=== PATIENT | female | born 2000 | race Caucasian/White ===

== ENCOUNTER → 2020-08-28 10:43 | Outpatient (CLI) | payer BC, SELFPAY ==
--- NOTE | ~2020-08-28 | US_ITS ---
EXAMINATION: US pelvic complete EXAM DATE: 08/28/2020 10:59 INDICATION: Abnormal uterine bleeding. TECHNIQUE: Pelvic transabdominal sonogram was performed. There are multiple grayscale and Doppler im ages available for interpretation. There is no prior study for comparison. FINDINGS: Uterus measures 6.9 x 2.2 x 3.3 cm, and is morphologically normal. Endometrial stripe dong sures 3 mm, within normal limits. There is no free pelvic fluid. Right adnexa: The ovary measures 2.3 x 1.4 x 2.6 cm and is morphologically normal. Ovarian vascular f low confirmed. Left adnexa: The ovary measures 2.4 x 1.3 x 2.0 cm and is morphologically normal. Ovarian vascular fl ow confirmed. IMPRESSION: Unremarkable pelvic ultrasound exam. Reviewed, dictated and finalized at location A.
== END ==
PROVIDERS: Visit Provider Nurse Practitioner
DX: N93.9 Abnormal uterine and vaginal bleeding, unspecified (principal)
CPT/HCPCS: 76856

== ENCOUNTER → 2021-04-14 07:45 | Outpatient (CLI) | payer BC, SELFPAY ==
--- NOTE | ~2021-04-14 | US_ITS ---
EXAMINATION: US abdomen limited DATE: 04/14/2021 08:14 INDICATION: Right upper quadrant abdominal pain. TECHNIQUE: Multiple grayscale and Doppler ultrasound images of the abdomen were obtained. COMPARISON: None FINDINGS: The visualized portions of the head, body, and tail of the pancreas are normal. The liver i s normal without focal lesion. No liver surface nodularity. There is normal flow in main portal vein. The gallbladder is normal in size. No gallstones or gallbladder wall thickening. There was no sonogr aphic Rankin sign. The common duct is normal and measures 3 mm. IMPRESSION: 1. Normal right upper quadrant ultrasound. Reviewed, dictated and finalized at location A. TECHNICIAN
== END ==
PROVIDERS: Visit Provider Nurse Practitioner Adult Health
DX: R10.11 Right upper quadrant pain (principal)
CPT/HCPCS: 76705

== ENCOUNTER 2021-07-08 14:01 | Emergency (ER) | payer BC, SELFPAY ==
[2021-07-08 14:17] VITALS: BP 140/77; PULSE 90; RESP 18; TEMP 36.6; O2SAT 100
--- NOTE | 2021-07-08 14:48 | ED.ALLEREA ---
HPI - Allergic Reaction General Chief complaint: Allergic Reaction Stated complaint: allergic reaction Time Seen by Provider: 07/08/21 14:40 History of Present Illness HPI narrative: 20-year-old female presented the emergency room with acute onset of rash to her upper and lower extremities. Patient states 3 to 4 days ago she was putting on a new lotion. Patient states rash is pruritic, has taken 50 mg of Benadryl this morning with no resolution of symptoms. Denies shortness of breath or difficulty breathing. Related Data Home Medications Medication Instructions Recorded Confirmed fluoxetine mg 07/08/21 Allergies Allergy/AdvReac Type Severity Reaction Status Date / Time nickel Allergy Rash Verified 07/08/21 14:41 Review of Systems Review of Systems: CONSTITUTIONAL: Denies fever, chills, or sweats. EYES: Denies visual changes, redness, or discharge. ENT: Denies rhinorrhea, congestion, sore throat, or otalgia. CARDIOVASCULAR: Denies chest pain, palpitations, or edema. RESPIRATORY: Denies cough or dyspnea. GASTROINTESTINAL: Denies abdominal pain, nausea, vomiting, or diarrhea. GENITOURINARY: Denies dysuria or hematuria. SKIN: Reports pruritic rash to arms and legs MUSCULOSKELETAL: Denies back pain, joint pain, or myalgia. NEUROLOGIC: Denies headache, numbness, dizziness, or weakness. PSYCHIATRIC: Denies anxiety or depression. Exam Narrative: GENERAL: Well-appearing, well-nourished, and in no acute distress. HEAD: Normocephalic, atraumatic. EYES: PERRLA and EOMI. ENT: Nares clear, no rhinorrhea or epistaxis. Mucous membranes moist. NECK: Supple. No adenopathy or masses. No carotid bruits or JVD CHEST: Clear to auscultation. No respiratory distress. No wheezes rales or rhonchi HEART: Regular rate and rhythm. No murmur heard. Normal peripheral pulses. ABDOMEN: Soft, nontender, nondistended, normal active bowel sounds. EXTREMITIES: Normal range of motion. No edema. SKIN: Erythematous wheals to the anterior surfaces of the upper and lower extremities and interdigitally NEURO: No focal deficits. Alert and oriented x3. PSYCH: Normal mood and affect. Course Vital Signs Vital signs: Vital Signs Temperature 36.6 C 07/08/21 14:17 Pulse Rate 90 07/08/21 14:17 Respiratory Rate 18 07/08/21 14:17 Blood Pressure 140/77 07/08/21 14:17 Pulse Oximetry 100 07/08/21 14:17 Temperature 36.6 C 07/08/21 14:17 Pulse Rate 90 07/08/21 14:17 Respiratory Rate 18 07/08/21 14:17 Blood Pressure 140/77 07/08/21 14:17 Pulse Oximetry 100 07/08/21 14:17 Discharge Plan Discharge Clinical Impression: Urticaria Allergic reaction Qualifiers: Encounter type: initial encounter Qualified Code(s): T78.40XA - Allergy, unspecified, initial encounter Patient Disposition: Home, Self-Care Condition: Stable Instructions: Antibiotic Form Additional Instructions: May take Benadryl at night, and Yi or Zyrtec during the day for rash and itching. Recommend taking a daily Pepcid. Follow-up with PCP in the next 1 to 2 weeks. Prescriptions: New prednisone 20 mg tablet 40 mg PO DAILY Qty: 10 RF: 0 No Action fluoxetine 20 mg tablet RF: 0 Follow-up/Referrals: Luis Alberto,ADIN Cohen [Primary Care Provider] - Time of Disposition: 15:59
[2021-07-08] MEDS: SODIUM CHLORIDE 0.9% IV 1,000 ML 999 ML IV CONT (14:57)
[2021-07-08] MEDS: diphenhydrAMINE HCl INJ 50 MG/ML VIAL IV PUSH (14:57)
[2021-07-08] MEDS: methylPREDNISolone SOD SUCC 125 MG VIAL IV PUSH (14:58)
[2021-07-08] MEDS: FAMOTIDINE 20 MG/2 ML VIAL IV PUSH (15:01)
[2021-07-08 16:16] VITALS: BP 128/76; PULSE 85; RESP 17; O2SAT 99
== END 2021-07-08 16:18 | disposition home or self-care (01) ==
PROVIDERS: Emergency Provider Nurse Practitioner Family; PCP Nurse Practitioner Adult Health
DX: T78.40XA Allergy, unspecified, initial encounter (principal); L50.9 Urticaria, unspecified
CPT/HCPCS: 96361; 96374; 96375; 99284; J1200; J2930; J7030

== ENCOUNTER 2022-06-01 22:18 | Emergency (ER) | payer BC, SELFPAY ==
--- NOTE | ~2022-06-01 | CT_ITS ---
Noncontrast CT scan of the thoracolumbar spine CLINICAL HISTORY: Back pain, injury TECHNIQUE: Axial noncontrast imaging of the thoracic and lumbar spine was performed. Sagittal and cor onal reformatted images were constructed. Dose reduction technique was used on this scan by utilizing automated exposure control and iterative reconstruction technique. CT thoracic spine findings: No fracture or subluxation identified. Vertebral bodies maintain normal h eight. No significant osseous abnormality identified. No definite canal stenosis or cord compression identified. No definite disc bulge or herniation ident ified. Paravertebral soft tissues are unremarkable. CT lumbar spine findings: No fracture or subluxation identified. Vertebral bodies maintain normal hei ght and alignment. No significant osseous abnormality identified. No definite disc bulge or herniation identified. No definite spinal canal stenosis or neural foramina l narrowing identified. Paravertebral soft tissues are unremarkable. IMPRESSION: Unremarkable thoracic spine. Unremarkable lumbar spine. Reviewed, dictated and finalized at [facility]. TION COORDINATOR
[2022-06-01 22:27] VITALS: BP 122/73; PULSE 121; RESP 20; TEMP 36.8; O2SAT 99
[2022-06-02] VITALS (26 sets, daily range): BP systolic 97–145; BP diastolic 57–107; PULSE 76–108; RESP 14–20; O2SAT 93–100
--- NOTE | 2022-06-02 02:20 | ED.BACK ---
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 Reports when she sat up she felt something pull in her back, and has since had severe pain in her back. She reports she is unable to ambulate w/o assistance. Denies loss of bowel or bladder control, saddle anesthesia, history of back surgeries or injuries, numbness or tingling to her lower extremities. Denies fever, body aches, chills, IVDU, cancer. She took tylenol and midol 6 hours ago without relief. <CARLOS Pelletier Last Filed: 06/02/22 02:28> Related Data Home Medications: Home Medications Medication Instructions Recorded Confirmed fluoxetine 20 mg tablet mg 07/08/21 <Marta Donato PA-C - Last Filed: 06/02/22 02:28> Allergies/Adverse Reactions: Allergies Allergy/AdvReac Type Severity Reaction Status Date / Time nickel Allergy Rash Verified 06/01/22 22:18 <CARLOS Pelletier Last Filed: 06/02/22 02:28> Review of Systems Review of Systems: CONSTITUTIONAL: Denies fever, chills EYES: Denies visual changes, redness, or discharge. ENT: Denies rhinorrhea, congestion, sore throat, or otalgia. CARDIOVASCULAR: Denies chest pain, palpitations, or edema. RESPIRATORY: Denies cough or dyspnea. GASTROINTESTINAL: Denies abdominal pain, nausea, vomiting, or diarrhea. GENITOURINARY: Denies dysuria or hematuria. SKIN: Denies rash or itching. MUSCULOSKELETAL: See HPI NEUROLOGIC: Denies headache, numbness, dizziness, or weakness. PSYCHIATRIC: Denies anxiety or depression. <Marta Donato PA-C - Last Filed: 06/02/22 02:28> Exam Narrative: GENERAL: Well-appearing, well-nourished, and in no acute distress. HEAD: Normocephalic, atraumatic. EYES: PERRLA and EOMI. ENT: Nares clear, no rhinorrhea or epistaxis. NECK: Supple. No adenopathy or masses. CHEST: Clear to auscultation. No respiratory distress. No wheezes rales or rhonchi HEART: Regular rate and rhythm. No murmur heard. Normal peripheral pulses. ABDOMEN: Soft, nontender, nondistended, normal active bowel sounds. EXTREMITIES: Midline vertebral tenderness extending from thoracic to lumbar spine. Left paraspinous muscle tenderness and spasms. Bilateral straight leg raises reveals increased pain in patient's low back. No radiculopathy. Distal sensation intact. DP pulses 2+. No saddle anesthesia. Limited range of motion with extension, flexion, lateral flexion and rotation. SKIN: Warm, dry, no rash. NEURO: No focal deficits. Alert and oriented x3. PSYCH: Normal mood and affect. <Marta Donato PA-C - Last Filed: 06/02/22 02:28> Course DENTIST ATTENDANT/PA Physician Supervision I have personally seen and evaluated the patient and made [id number] time with the patient. Patient is a 21-year-old female with low back pain after he was lifting a 35 pound dumbbell patient denies bowel or bladder dysfunction denies paresthesias denies foot drop. CT scan of the T and L-spine showed no significant abnormality. <Robbie Maravilla MD - Last Filed: 06/02/22 05:30> Vital Signs Vital signs: Vital Signs Temperature 36.8 C 06/01/22 22:27 Pulse Rate 121 H 06/01/22 22:27 Respiratory Rate 20 06/01/22 22:27 Blood Pressure 122/73 06/01/22 22:27 Pulse Oximetry 99 06/01/22 22:27 Oxygen Delivery Room Air 06/01/22 22:27 Temperature 36.8 C 06/01/22 22:27 Pulse Rate 82 06/02/22 02:46 Respiratory Rate 06/02/22 00:31 Blood Pressure 97/71 L 06/02/22 02:46 Pulse Oximetry 100 06/02/22 02:46 Oxygen Albertina
[2022-06-02 02:54] LABS: SPREG INTERNAL CONTROL Positive; Serum Qual hCG Negative
[2022-06-02] MEDS: HYDROcodone/acetaminophen (*CRX) 10-325 MG TABLET 1 TAB PO (03:00)
[2022-06-02] MEDS: methocarbamoL 500 MG TABLET PO (03:00)
--- NOTE | 2022-06-02 05:30 | PC.NURSE ---
PT ambulated in hallway at this time. Pt has slow gait and muscle spasm while walking but is able to bear weight by self.
== END 2022-06-02 06:08 | disposition home or self-care (01) ==
PROVIDERS: Emergency Provider Physician Assistant; PCP Family Medicine
DX: S39.012A Strain of muscle, fascia and tendon of lower back, initial encounter (principal); X50.0XXA Overexertion from strenuous movement or load, initial encounter; Y93.B3 Activity, free weights
CPT/HCPCS: 36415; 72128; 72131; 84703; 99284; A9270

== ENCOUNTER 2023-12-21 15:47 | Emergency (ER) | payer BC, SELFPAY ==
--- NOTE | ~2023-12-21 | XR_ITS ---
XR toe 5th LT min 2V Ordering provider: Rosemarie Haile NP History: . Hit 5th lt digit this morning at 0930 . Comparison: None. FINDINGS: BONES: No definite acute fracture or dislocation. Possibility of dorsal subluxation in the fifth toe cannot be excluded. Clinical correlation advised. JOINT SPACES: Normal. SOFT TISSUES: Soft tissue swelling over the little toe. IMPRESSION: No definite acute osseous abnormality. Possibility of dorsal subluxation in the fifth toe, be exclude d. Reviewed, dictated and finalized at location A. IMPRESSION: No definite acute osseous abnormality. Possibility of dorsal subluxation in the fifth toe, be excluded.
[2023-12-21 15:58] VITALS: BP 131/87; PULSE 107; RESP 16; TEMP 36.7; O2SAT 99
--- NOTE | 2023-12-21 17:02 | ED.GENADULT ---
HPI - General Adult General Chief complaint: Extremity Injury, Lower Stated complaint: Toe Injury Time Seen by Provider: 12/21/23 17:00 Source: patient, RN notes reviewed and old records reviewed Mode of arrival: ambulatory Limitations: no limitations History of Present Illness HPI narrative: 23-year-old female presents to [facility] with complaints of injury to her left 5th toe when she tripped and hit her foot on a dog crate this morning. Patient reports she is iced her foot and she has also taken some Aleve for her discomfort. Patient has bruising and swelling present to her left 5th toe from injury and pain. MD complaint: toe injury Onset (ago): day(s) (this morning) Severity scale (1-10): 10 Quality: other (throbbing) Treatments prior to arrival: cold therapy and other (Aleve) Related Data Home Medications Medication Instructions Recorded Confirmed famotidine (PF) 12/21/23 medroxyprogesterone 150 mg/mL mg IM 12/21/23 12/21/23 intramuscular syringe Allergies Allergy/AdvReac Type Severity Reaction Status Date / Time nickel Allergy Rash Verified 06/01/22 22:18 Review of Systems Review of Systems: CONSTITUTIONAL: Denies fever, chills, or sweats. EYES: Denies visual changes, redness, or discharge. ENT: Denies rhinorrhea, congestion, sore throat, or otalgia. CARDIOVASCULAR: Denies chest pain, palpitations, or edema. RESPIRATORY: Denies cough or dyspnea. GASTROINTESTINAL: Denies abdominal pain, nausea, vomiting, or diarrhea. GENITOURINARY: Denies dysuria or hematuria. SKIN: Denies rash or itching. MUSCULOSKELETAL: Denies back pain,positive for acute pain to the 5th toe of her left foot joint pain, or myalgia. NEUROLOGIC: Denies headache, numbness, or weakness. PSYCHIATRIC: Denies anxiety or depression. All systems reviewed & are unremarkable except as noted in HPI and below PMFSH Past Medical History Medical History (Updated 12/22/23 @ 17:07 by Rosemarie Haile NP) GERD (gastroesophageal reflux disease) Social History Social History (Updated 12/22/23 @ 17:01 by Rosemarie Haile NP) Smoking status: Never smoker Alcohol intake: current Alcohol use details: social Substance use type: does not use Living arrangements: with family Gender identity (if verbalized by the patient): Female Comments At time of signature, agree with nursing past medical, surgical, social and family history. There is no relevant family history pertinent to the presenting complaint Exam Narrative: GENERAL: Well-appearing, well-nourished, and in no acute distress. HEAD: Normocephalic, atraumatic. EYES: PERRLA and EOMI. ENT: Nares clear, no rhinorrhea or epistaxis. Mucous membranes moist. NECK: Supple.no lymphadenopathy CHEST: Clear to auscultation. No respiratory distress.SAO2 99% on room air HEART: Regular rate and rhythm. No murmur heard. Normal peripheral pulses. ABDOMEN: Soft, nontender, nondistended, normal active bowel sounds. EXTREMITIES: Normal range of motion. No edema.Exception noted to 5th toe of left foot which is swollen and bruised and painful especially with weight bearing and ambulation, stronh left pedal pulse no tingling or numbness to left foot. SKIN: Warm, dry, no rash. NEURO: No focal deficits. Alert and oriented x3. Course Course Emergency Course: Patient is aware of diagnosis, understands and agrees to treatment plan.? Anticipatory guidance given.? Patient agrees to follow-up as directed and is aware of reasons to seek care at the emergency department. Portions of this record may have been created with voice recognition software Level of Care: Express Care Visit Vital Signs Vital signs: Vital Signs Temperature 36.7 C 12/21/23 15:58 Pulse Rate 107 H 12/21/23 15:58 Respiratory Rate 16 12/21/23 15:58 Blood Pressure 131/87 12/21/23 15:58 Pulse Oximetry 99 12/21/23 15:58 Oxygen Delivery Room Air 12/21/23 15:58 Temperature 36.7 C 12/21/23 15:58 Pulse
== END 2023-12-21 17:19 | disposition home or self-care (01) ==
PROVIDERS: Emergency Provider Registered Nurse; PCP Nurse Practitioner Family
DX: S90.122A Contusion of left lesser toe(s) without damage to nail, initial encounter (principal); W22.8XXA Striking against or struck by other objects, initial encounter; K21.9 Gastro-esophageal reflux disease without esophagitis
CPT/HCPCS: 73660; 99213; G0463

== ENCOUNTER 2024-10-12 08:03 | Emergency (ER) | payer BC, SELFPAY ==
--- OUTSIDE RECORDS SUMMARY | 2024-10-12 08:06 | XMS_ITS | Clinical Summary ---
Author Organization [facility] Address [address] [place] [address] Phone Care Team Providers Care Tile Setter Apprentice Name Role Phone Beata Cuello APRN, NELSON Primary Care Provider Mane Wiley MD Unavailable Allergies Active Allergy Reactions Criticality Noted Date Comments Nickel Rash 09/01/2024 Medications famotidine (PEPCID) 40 MG Tablet Take 1 Tablet by mouth every evening. 90 Tablet 02/09/20 23 Active acetaminophen (TYLENOL) 325 MG Tablet Take 1 Tablet by mouth every 6 hours as needed for Fever (for temperature greater than 100.4 F.). Do not exceed 4000 mg of acetaminophen in 24 hour from all sources. 09/03/19 25 Active medroxyPROGESTER one Acetate (DEPO-PROVERA) 150 MG/ML Suspension Prefilled Syringe by Intramuscular route once. 09/12/24 received 09/08/19 25 Active Ondansetron HCl (ZOFRAN PO) Take by mouth. 025 Discontinu ed(Med List Clean Up) oxyCODONE (ROXICODONE) 5 MG TabletIndication s:Acute on chronic cholecystitis Take 1 Tablet by mouth every 4 hours as needed for Moderate or more severe pain. 12 Tablet 09/03/19 25 025 Discontinu ed(Med List Clean Up) ibuprofen (MOTRIN) 800 MG Tablet Take 1 Tablet by mouth every 8 hours for 10 days. 30 Tablet 09/03/19 25 025 Active Problems Problem Noted Date Diagnosed Date Acute on chronic cholecystitis 09/01/2024 Acute cholecystitis 09/01/2024 Encounters Date Type Department Care Team Description 09/13/2024 9:45 AM CDT [facility] - [place] [address] [facility] [address] [place] [phone] Mane Wiley MD S/P laparoscopic cholecystectomy (Primary Dx) Discharge Disposition: Discharged to home or Selfcare 09/13/2024 Travel 09/05/2024 [facility]phone [facility] [place] [phone] Mane Wiley MD Care Management 09/01/2024 11:14 AM CDT Anesthesia Event [facility] Periop [address] [place] [phone] Juni Crenshaw MD 09/01/2024 10:40 AM CDT - 09/01/2024 12:10 PM CDT [facility] [address] [place] [phone] Mane Wiley MD LAPAROSCOPIC CHOLECYSTECTOMY 09/01/2024 9:32 AM CDT - 09/02/2024 12:53 PM CDT [facility] [address] [place] [phone] Ko Smart, [facility] Mane Wiley MD Acute on chronic cholecystitis Discharge Disposition: Discharged to home or Selfcare 09/01/2024 Travel 09/01/2024 Telephone [facility] - [place] [address] [place] [phone] Mane Wiley MD Pain; Vomiting 08/31/2024 2:00 PM CDT [facility] - [place] [address] [facility] [address] [place] [phone] Mane Wiley MD Acute on chronic cholecystitis (Primary Dx) Discharge Disposition: Discharged to home or Selfcare 08/31/2024 Travel 08/27/2024 11:13 PM CDT - 08/28/2024 2:12 AM CDT Emergency [facility] Emergency [address] [place] [phone] Marco Antonio Layton MD Cholecystitis Discharge Disposition: Discharged to home or Selfcare 08/27/2024 Travel 07/26/2024 12:59 PM CDT - 07/26/2024 2:44 PM CDT Emergency [facility] Emergency [address] [place] [phone] Danelle Hare APRN, CNP Contusion of right wrist, initial encounter Discharge Disposition: Discharged to home or Selfcare 07/26/2024 Travel from Last 3 Months Family History Medical History Relation Name Comments No Known Problems Brother 1 No Known Problems Brother 2 Diabetes Father Hypertension Father Diabetes Maternal Grandfather Heart Attack Maternal Grandmother gerd Mother No Known Problems Paternal Grandfather No Known Problems Paternal Grandmother No Known Problems Sister Relation Name Status Comments Brother 1 Alive Brother 2 Alive Father Alive Maternal Grandfather Alive Maternal Grandmother Alive Mother Alive Paternal Grandfather Paternal Grandmother Alive Sister Alive Social History Tobacco Use Types Packs/Day Years Used Date Smoking Tobacco: Never Smokeless Tobacco: Never Tobacco Cessation:Counseling Given: Not Answered Alcohol Use Standard Drinks/Week Comments Yes 2 (1 standard drink = 0.6 oz pur e alcohol) x2 a month: occasional drinks Daily Pic Utilities Answer Date Recorded In the past 12 months has Pin [employer], [employer], oil, or water [employer] threatened to shut off services in your home? No 09/01/2024 Social Connection and Isolation Panel Answer Date Recorded In a typical week, how many times do you talk on the phone with family, friends, or neighbors? More than three times a week 09/01/2024 How often do you get togethe r with friends or relatives? More than three times a week 09/01/2024 How often do you attend chur or restorationism services? Never 09/01/2024 Do you belong to any clubs o r organizations such as yarsani groups, unions, fraternal or athletic groups, or school groups? No 09/01/2024 How often do you attend meet ings of the clubs or organizations you belong to? Never 09/01/2024 Are you , , di vorced, , never , or living with a partner? Never 09/01/2024 AUDIT-C Answer Date Recorded Q1: How often do you have a drink containing alc ohol? Monthly or less 09/01/2024 Q2: How many drinks containi ng alcohol do you have on a typical day when you are drinking? 1 or 2 09/01/2024 Q3: How often do you have si x or more drinks on one occasion? Less than monthly 09/01/2024 Overall Financial Resource Strain (CARDIA) Answe r Date Recorded How hard is it for you to pa y for the very basics like food, housing, medical care, and heating? Not very hard 09/01/2024 [facility] - Occupational Stress Questionnaire Answer Date Recorded Do you feel stress - tense, restless, nervous, or anxious, or unable to sleep at night because your mind is troubled all the time - these days? Not at all 09/01/2024 Exercise Vital Sign Answer Date Recorde d On average, how many days pe r week do you engage in moderate to strenuous exercise (like a brisk walk)? 2 days 09/01/2024 On average, how many minutes do you engage in exercise at this level? 60 min 09/01/2024 Hunger Vital Sign Answer Date Recorded Within the past 12 months, y ou worried that your food would run out before you got the money to buy more. Never true 09/02/19 25 Within the past 12 months, t he food you bought just didn't last and you didn't have money to get more. Never true 09/01/2024 PRAPARE - Transportation Answer Date Re corded In the past 12 months, has l ack of transportation kept you from medical appointments or from getting medications? No 08/11 In the past 12 months, has l ack of transportation kept you from meetings, work, or from getting things needed for daily living? No 09/01/2024 Housing Stability Vital Sign Answer Ever e Recorded In the last 12 months, was t here a time when you were not able to pay the mortgage or rent on time? No 09/01/2024 In the past 12 months, how m any times have you moved where you were living? 0 09/01/2024 At any time in the past 12 m [facility], were you homeless or living in a detention (including now)? No 09/01/2024 Sexually Active Control Partners Comments Yes Male Comments No Sex and Gender Information Value Date Recorded Sex Assigned at Not on file Legal Sex Female 3:24 PM CDT Gender Identity Not on file Sexual Orientation Not on file Last Filed Vital Signs Vital Sign Reading Time Taken Comments Blood Pressure 126/80 09/13/2024 9:42 AM CDT Pulse 97 09/13/2024 9:42 AM CDT Temperature 36.4 C (97.5 F) 09/13/2024 9:42 AM CDT Respiratory Rate 20 09/13/2024 9:42 AM CDT Oxygen Saturation 98% 09/13/2024 9:42 AM CDT Inhaled Oxygen Concentration - - Weight 88.5 kg (195 lb) 09/01/2024 1:40 PM CDT Height 172.7 cm (5' 8) 09/13/2024 9:42 AM CDT Body Mass Index 29.65 09/01/2024 1:40 PM CDT Plan of Treatment Health Maintenance Due Date Last Done Comments Hepatitis C Virus (HCV) Screening 1999 Pap Smear 09/28/2020 SARS-COV-2 Immunization ( season) 2023 03/07/2022, 02/28/2021, 08/10/2020, Additional history exists Respiratory Syncytial Virus (RSV) Immunization (Adult) (1 - 1-dose 75+ series) 09/28/2074 Pneumococcal Immunization Combined Completed 2000, 04/01/2000, 02/03/2000, Additional history exists Hepatitis B Immunization Completed 001, 02/03/2000, 1999 Meningococcal Immunization (ACWY) Completed 10/25/2015 Human Papillomavirus (HPV) Immunization Completed 10/20/2017, 05/07/2014, 01/04/2014, Additional history exists Meningococcal B Immunization Discontinued 05/18/2019, 10/20/2017 DTaP/Tdap/Td Immunization Discontinued 2020, 11/14/2010, 05/28/2004, Additional history exists TdaP Immunization Completed 01/03/2021, 11/14/2010 Influenza Immunization Completed , 03/07/2022, 01/21/2021, Additional history exists Rotavirus Immunization Aged Out No lo nger eligible based on patient's age to complete this topic Procedures Procedure Name Priority Date/Time Associated Diagnosis Comments CBC WITH AUTO DIFFERENTIAL Routine 09/02/2024 5:06 AM CDT COMPLETE BLOOD COUNT (CBC) WITH DIFF Routine 09/02/2024 5:06 AM CDT BASIC METABOLIC PANEL W/ CALCIUM TOTAL Routine 09/02/2024 5:06 AM CDT INTUBATION IN OR Routine 09/01/2024 11:34 AM CDT PATHOLOGY SURGICAL Routine 09/01/2024 11:26 AM CDT URINALYSIS REFLEX IF INDICATED BY ABNORMAL RESULTS STAT 09/01/2024 11:02 AM CDT CULTURE, URINE Routine 09/01/2024 11:02 AM CDT POCT URINE HCG () STAT 09/01/2024 10:55 AM CDT LAP,CHOLECYSTECTOM Y 09/01/2024 10:54 AM CDT ACUTE ON CHRONIC CHOLECYSTITIS WITH HYDROPS AND GALLSTONES CRITICAL CARE Routine 09/01/2024 10:08 AM CDT BLUE TOP TUBE STAT 09/01/2024 9:38 AM CDT EXTRA TUBES STAT 09/01/2024 9:38 AM CDT APTT (PTT) STAT 09/01/2024 9:38 AM CDT PROTIME (PT) (PROTHROMBIN TIME) STAT 09/01/2024 9:38 AM CDT CBC WITH AUTO DIFFERENTIAL STAT 09/01/2024 9:36 AM CDT LIPASE STAT 09/01/2024 9:36 AM CDT CMP (COMPREHENSIVE METABOLIC PANEL) STAT 09/01/2024 9:36 AM CDT COMPLETE BLOOD COUNT (CBC) WITH DIFF STAT 09/01/2024 9:[address] ABDOMEN PELVIS W/ CONTRAST Stat with Interpretation 08/28/2024 1:14 AM CDT CBC WITH AUTO DIFFERENTIAL STAT 08/27/2024 11:39 PM CDT LIPASE STAT 08/27/2024 11:39 PM CDT COMPLETE BLOOD COUNT (CBC) WITH DIFF STAT 08/27/2024 11:39 PM CDT CMP (COMPREHENSIVE METABOLIC PANEL) STAT 08/27/2024 11:39 PM CDT URINALYSIS REFLEX IF INDICATED BY ABNORMAL RESULTS STAT 08/27/2024 11:24 PM CDT POCT URINE HCG () STAT 08/27/2024 11:22 PM CDT XR WRIST 3 OR MORE VIEWS RIGHT STAT 07/26/2024 1:16 PM CDT from Last 3 Months Results * (ABNORMAL) CBC with Auto Differential (09/02/2024 5:06 AM CDT) Only the most recent of3 resultswithin the time period is included. WBC 8.83 4.00 - 12.00 10(3)/mcL 09/02/2024 5:13 AM CDT [facility] RBC 3.89 3.80 - 5.30 10(6)/mcL 09/02/2024 5:13 AM CDT [facility] HEMOGLOBIN (HGB) 11.2(L) 12.0 - 15.8 g/dL 09/02/2024 5:[address] [facility] HEMATOCRIT (HCT) 34.1(L) 36.0 - 47.0 % 09/02/2024 5:[address] MCV 87.7 82.0 - 96.0 fL 09/02/2024 5:[address] [facility] MCH 28.8 26.0 - 34.0 pg 09/02/2024 5:[address] [facility] MCHC 32.8 31.0 - 36.0 g/dL 09/02/2024 5:[address] [facility] PLATELET COUNT 302 140 - 440 10(3)/mcL 09/02/2024 5:[address] [facility] RDW 12.1 11.8 - 15.5 % 09/02/2024 5:[address] [facility] MPV 8.8(L) 9.7 - 12.4 fL 09/02/2024 5:[address] [facility] NEUTROPHILS 65.4 47.0 - 73.0 % 09/02/2024 5:[address] [facility] LYMPHOCYTES 25.1 18.0 - 42.0 % 09/02/2024 5:[address] [facility] MONOCYTES 8.2 4.0 - 12.0 % 09/02/2024 5:[address] [facility] EOSINOPHILS 1.0 0.0 - 5.0 % 09/02/2024 5:[address] [facility] BASOPHILS 0.3 0.0 - 1.0 % 09/02/2024 5:[address] [facility] ABSOLUTE NEUTROPHILS 5.77 1.60 - 7.70 10(3)/mcL 09/02/2024 5:[address] [facility] ABSOLUTE LYMPHOCYTES 2.22 1.30 - 3.20 10(3)/mcL 09/02/2024 5:[address] [facility] ABSOLUTE MONOCYTES 0.72 0.20 - 1.00 10(3)/mcL 09/02/2024 5:[address] [facility] ABSOLUTE EOSINOPHIL 0.09 0.00 - 0.40 10(3)/mcL 09/02/2024 5:[address] [facility] ABSOLUTE BASOPHILS 0.03 0.00 - 0.10 10(3)/mcL 09/02/2024 5:13 AM CDT [facility] NRBC PER 100 WBC 0 09/03/19 5:13 AM CDT [facility] Blood Venipuncture / Unknown 09/02/2024 5:06 AM CDT 09/02/2024 5:06 AM CDT us Kindra Robbins RADIO REPAIRER DOMESTIC, DOVETAIL MACHINE OPERATOR HEMATOLOGY ORDERABLES Fin al Result [facility] [address] [place] [address] * (ABNORMAL) BMP with Ca, Total (09/02/2024 5:06 AM CDT) SODIUM 140 136 - 145 mmol/L 09/02/2024 5:37 AM CDT [facility] POTASSIUM 4.0 3.5 - 5.1 mmol/L 09/02/2024 5:37 AM CDT [facility] CHLORIDE 110(H) 98 - 107 mmol/L 09/02/2024 5:37 AM CDT [facility] CO2, VENOUS 23 22 - 30 mmol/L 09/02/2024 5:37 AM CDT [facility] ANION GAP 11.0 <18.0 mmol/L 09/02/2024 5:37 AM CDT [facility] GLUCOSE 87 70 - 99 mg/dL 09/02/2024 5:37 AM CDT [facility] BUN 8 5 - 18 mg/dL 09/02/2024 5:[address] [facility] CREATININE, BLOOD 1.15(H) 0.60 - 1.00 mg/dL 09/02/2024 5:[address] [facility] BUN/CREATININE RATIO 7(L) 12 - 20 ratio 09/02/2024 5:[address] [facility] CALCIUM 8.9 8.7 - 10.5 mg/dL 09/02/2024 5:[address] [facility] GFR, ESTIMATED >60 >=60 09/02/2024 5:[address] [facility] Comment: Creatinine Clearance is the preferred criteria for selecting drug dose adjustments in renally impaired patients. The GFR is provided as additional pertinent clinical information. GFR is reported in mL/min/1.73 sq m. Calculation based on the Chronic Kidney Disease Epidemiology Collaboration (CKD- EPI) equation refit without adjustment for race. GFR, EST. >60 >=60 025 5:[address] [facility] GFR, EST. NONAFRICAN 58(L) >=60 09/02/2024 5:[address] [facility] Blood Venipuncture / Unknown 09/02/2024 5:06 AM CDT 09/02/2024 5:06 AM CDT us Kindra Robbins RADIO REPAIRER DOMESTIC, DOVETAIL MACHINE OPERATOR CHEMISTRY ORDERABLES Shreya l Result [facility] [address] [place] [address] * Intubation in OR (09/01/2024 11:34 AM CDT) Narrative Juni Crenshaw MD - 09/01/2024 11:34 AM CDT Juni Crenshaw MD 09/01/2024 11:34 AM Intubation in OR Staffing Performed: anesthesiologist Performed by: Juni Crenshaw MD Authorized by: Juni Crenshaw MD Overall Difficulty: Easy Procedure Details Patient Position: Sniffing Ease of mask ventilation: easy with airway Intubation Site: oral Tube Type: Standard Cuffed: yes Cricoid Pressure: No Rapid Sequence: No Airway Assist Devices: oral airway Blade Used: Watkins Blade size: #2 Stylet Used: No Laryngeal View: Grade I Tube Size: 7 mmConfirmation: breath sounds and +EtCO2 Depth: 21 cm Atraumatic: Atraumatic intubation us Juni Crenshaw MD ANESTHESIA ORDERABLES Final R esult * Pathology Surgical (09/01/2024 11:26 AM CDT) Case Report Surgical Pathology Report Case: [id number] Authorizing Provider: Mane Wiley MD Collected: 09/01/2024 11:26 AM Ordering Location: [facility] Received: 09/05/2024 08:25 AM [facility] Main OR Pathologist: Joao Mcqueen MD PhD Specimen: Gallbladder, GALLBLADDER 09/06/2024 9:35 AM CDT [facility] FINAL DIAGNOSIS Gallbladder, cholecystectomy: - Chronic cholecystitis and cholelithiasis 09/06/2024 9:35 AM CDT [facility] at 0935 CDT Pre-Operative Diagnosis ACUTE ON CHRONIC CHOLECYSTITIS 09/06/2024 9:35 AM CDT [facility] Gross Description A. GALLBLADDER The specimen presents in a single formalin container for gross and microscopic examination, labeled with the patient's name, Liss Cartagena, and designated as gallbladder. In formalin is a previously-opened gallbladder that measures 9.2 x 3.0 x 2.5 cm. Also present within the container are two green-yellow stones ranging in size from 1.0 cm up to 1.5 cm in total dimensions. The serosal surfaces are pink-elizondo in color. The gallbladder wall measures up to 0.2 cm in greatest thickness. The cystic duct and neck are stapled closed. Mucosal surfaces are pink-elizondo in color. There is a small possible perforated area located in the fundus. Teacher Lip Reading sample of the cystic duct and neck along with aforementioned possible perforation and the fundus are submitted in cassette A1. Total time of fixation for this case is 94 hours, 20 minutes. NITHYA/sb 09/06/2024 9:[address] [facility] Microscopic Description Microscopic examination was performed which supports the final diagnosis. All control tissues stained appropriately. 09/06/2024 9:35 AM CDT [facility] Tissue GALLBLADDER STRUCTURE / Unknown 09/01/2024 11:26 AM CDT 09/05/2024 8:25 AM CDT Mane Wiley MD PATHOLOGY/CYTOLOGY ORDERABLES Fi nal Result [facility] [address] [place] [address] * (ABNORMAL) Urinalysis w/ Reflex (09/01/2024 11:02 AM CDT) Only the most recent of2 resultswithin the time period is included. SPECIFIC GRAVITY 1.025 1.003 - 1.030 09/01/2024 11:37 AM CDT [facility] URINE PH 6.0 5.0 - 9.0 09/01/2024 11:37 AM CDT [facility] WBC ESTERASE 25 /ul(A) Negative 09/01/2024 11:[address] [facility] NITRITE Negative Negative 09/01/2024 11:37 AM CDT [facility] PROTEIN, RANDOM URINE 30 mg/dL(A) Negative 09/01/2024 11:[address] [facility] URINE GLUCOSE, QUAL Negative Negative 09/01/2024 11:37 AM CDT [facility] URINE KETONES 150 mg/dL(A) Negative 11:[address] [facility] UROBILINOGEN Normal Normal mg/dL 09/01/2024 11:37 AM CDT [facility] URINE BLOOD Negative Negative jayda/ul 09/01/2024 11:37 AM CDT [facility] URINALYSIS COLOR Dark Yellow 025 11:[address] [facility] URINALYSIS CLARITY Slightly Cloudy 09/01/2024 11:[address] [facility] WBC (Urine) 6-10(A) Negative, 0-5 /hpf 09/01/2024 11:[address] [facility] URINE RBC'S Negative Negative, 0-2 /hpf 09/01/2024 11:[address] [facility] EPITHELIAL CELLS Moderate amount /lpf 09/01/2024 11:[address] [facility] BACTERIA, URINE Few(A) Negative /hpf 09/01/2024 11:[address] [facility] Urine URINE SPECIMEN / Unknown Non-Phlebotomy Collection / Unknown 09/01/2024 11:02 AM CDT 09/01/2024 11:02 AM CDT Tom Lloyd MD URINE ORDERABLES Final Res ult [facility] [place] [address] * Culture, Urine (09/01/2024 11:02 AM CDT) Pathologist [facility] CULTURE RESULTS Mixed Growth of One or More Distal Urethral Contaminants 09/02/2024 3:43 PM CDT [facility] Urine URINE SPECIMEN / Unknown Non-Phlebotomy Collection / Unknown 09/01/2024 11:02 AM CDT 09/01/2024 11:02 AM CDT Tom Lloyd MD MICROBIOLOGY - GENERAL ORD ERABLES Final Result [facility] [address] [place] [address], * POCT Urine HCG () (09/01/2024 10:55 AM CDT) Only the most recent of2 resultswithin the time period is included. POC URINE Negative POC URINE CONTROL Route Sales Person Pass Urine 09/01/2024 10:5 5 AM CDT us Tom Lloyd MD POINT OF CARE TESTING (MAN UAL) Final Result * Critical Care (09/01/2024 10:08 AM CDT) Narrative Tom Lloyd MD - 09/01/2024 10:08 AM CDT Tom Lloyd MD 09/01/2024 6:03 PM Critical Care Performed by: Ko Smart PAC Authorized by: Ko Smart PAC Critical care provider statement: Critical care time (minutes): 30 Critical care time was exclusive of: Separately billable procedures and treating other patients and teaching time Critical care was time spent personally by me on the following activities: Ordering and performing treatments and interventions, ordering and review of laboratory studies, ordering and review of radiographic studies, pulse oximetry, re-evaluation of patient's condition, review of old charts, development of treatment plan with patient or surrogate, discussions with consultants, evaluation of patient's response to treatment and obtaining history from patient or surrogate Care discussed with: admitting provider us Ko Smart PAC PROCEDURE/MINOR SURG ICAL ORDERABLES Final Result * Blue Top Tube (09/01/2024 9:38 AM CDT) Blood No Phlebotomy Charged / Unknown 09/01/2024 9:38 AM CDT 09/01/2024 10:19 AM CDT Ko Smart PAC HEMATOLOGY ORDERABLE S Final Result [facility] [address] [place] [address] * PTT (09/01/2024 9:38 AM CDT) PTT 31 24 - 36 sec 09/01/2024 10:[address] [facility] Blood Venipuncture / Unknown 09/01/2024 9:38 AM CDT 09/01/2024 10:18 AM CDT Narrative [facility] - 09/01/2024 10:33 AM CDT Therapeutic range for unfractionated heparin at 0.3-0.7 U/mL is an aPTT value in the range of 71-100 seconds. Critical value for the PTT test is >= 122 seconds. Ko Smart PAC HEMATOLOGY ORDERABLE S Final Result Performing Organization Address [facility] [address]/[facility] de Phone Number [facility] [address] [place] [address] * PT / INR (09/01/2024 9:38 AM CDT) PROTIME-PATIENT 13.6 11.6 - 14.8 sec 09/01/2024 10:[address] [facility] INR 1.0 0.9 - 1.2 09/01/2024 10:[address] [facility] Comment: Therapeutic Ranges INR = 2.0-3.0: Venous thromb, atrial fib, pul embolism, tissue heart valve, ami. INR = 2.5-3.5: Mechanical heart valve Critical value for INR is >/= 4.5 Blood Venipuncture / Unknown 09/01/2024 9:38 AM CDT 09/01/2024 10:18 AM CDT Ko Smart PAC HEMATOLOGY ORDERABLE S Final Result Performing Organization Address [facility] [address]/[facility] de Phone Number [facility] [address] [place] [address] * Lipase (09/01/2024 9:36 AM CDT) Only the most recent of2 resultswithin the time period is included. LIPASE 13 8 - 78 U/L 09/01/2024 10:[address] [facility] Blood Venipuncture / Unknown 09/01/2024 9:36 AM CDT 09/01/2024 10:05 AM CDT us Tom Lloyd MD CHEMISTRY ORDERABLES Final Result [facility] [address] [place] [address] * (ABNORMAL) CMP (09/01/2024 9:36 AM CDT) Only the most recent of2 resultswithin the time period is included. SODIUM 141 136 - 145 mmol/L 09/01/2024 10:[address] [facility] POTASSIUM 3.9 3.5 - 5.1 mmol/L 09/01/2024 10:[address] [facility] CHLORIDE 109(H) 98 - 107 mmol/L 09/01/2024 10:24 AM CDT [facility] CO2, VENOUS 19(L) 22 - 30 mmol/L 09/01/2024 10:[address] [facility] ANION GAP 16.9 <18.0 mmol/L 09/01/2024 10:24 AM CDT [facility] GLUCOSE 98 70 - 99 mg/dL 09/01/2024 10:24 AM CDT [facility] BUN 8 5 - 18 mg/dL 09/01/2024 10:24 AM CDT [facility] CREATININE, BLOOD 0.84 0.60 - 1.00 mg/dL 09/01/2024 10:24 AM CDT [facility] BUN/CREATININE RATIO 10(L) 12 - 20 ratio 09/01/2024 10:24 AM CDT [facility] TOTAL PROTEIN 8.3(H) 6.0 - 8.0 g/dL 09/01/2024 10:[address] [facility] ALBUMIN 4.7 3.5 - 5.0 g/dL 09/01/2024 10:24 AM CDT [facility] A/G RATIO 1.3 1.0 - 2.2 09/01/2024 10:24 AM CDT [facility] CALCIUM 9.9 8.7 - 10.5 mg/dL 09/01/2024 10:[address] [facility] T BILI 0.8 0.2 - 1.2 mg/dL 09/01/2024 10:[address] [facility] SGOT (AST) 22 <43 U/L 09/01/2024 10:[address] [facility] SGPT (ALT) 23 <56 U/L 09/01/2024 10:[address] [facility] ALKALINE PHOSPHATASE 70 40 - 150 U/L 09/01/2024 10:[address] [facility] GFR, ESTIMATED >60 >=60 09/01/2024 10:[address] [facility] Comment: Creatinine Clearance is the preferred criteria for selecting drug dose adjustments in renally impaired patients. The GFR is provided as additional pertinent clinical information. GFR is reported in mL/min/1.73 sq m. Calculation based on the Chronic Kidney Disease Epidemiology Collaboration (CKD- EPI) equation refit without adjustment for race. GFR, EST. >60 >=60 025 10:[address] [facility] GFR, EST. NONAFRICAN >60 >=60 09/01/2024 10:[address] [facility] Blood Venipuncture / Unknown 09/01/2024 9:36 AM CDT 09/01/2024 10:05 AM CDT us Tom Lloyd MD CHEMISTRY ORDERABLES Final Result [facility] [place] [address] * CT ABDOMEN PELVIS W/ CONTRAST (08/28/2024 1:14 AM CDT) Anatomical Region Laterality Modality Abdomen N/A Computed Tomogra phy 08/28/2024 1:27 AM CDT Impressions 08/28/2024 1:29 AM CDT IMPRESSION: The gallbladder is distended, and the gallbladder wall demonstrates mild diffuse thickening. No CT evidence of cholelithiasis. If there is clinical concern for cholecystitis, recommend correlation with gallbladder ultrasound. Narrative 08/28/2024 1:29 AM CDT EXAM DESCRIPTION: CT ABDOMEN PELVIS W/ CONTRAST REASON FOR STUDY: c/o RUQ abdominal pain x 1 day. HX: GERD TECHNIQUE: CT scan of the abdomen and pelvis performed with intravenous and without oral contrast using helical scanning technique with dynamic intravenous contrast injection. Reconstructed coronal and sagittal MPR images reviewed. All images stored on PACS. Automated exposure control was used as a dose optimization technique for this examination. CONTRAST TYPE/DOSE: 100mL of IOPAMIDOL 76 % IV SOLN injected via Intravenous COMPARISON: None FINDINGS: LOWER CHEST: No significant pulmonary abnormalities. No effusion. LIVER: Normal size. No identified cystic or solid masses. GALLBLADDER: The gallbladder is distended, and the gallbladder wall demonstrates mild diffuse thickening. No CT evidence of cholelithiasis. If there is clinical concern for cholecystitis, recommend correlation with gallbladder ultrasound. BILE DUCTS: No intrahepatic or extrahepatic ductal dilatation. SPLEEN: Normal size. No focal lesions. PANCREAS: No identified cystic or solid masses. No significant calcifications. No adjacent inflammation or peripancreatic fluid collections. Pancreatic duct not dilated. ADRENALS: Normal. KIDNEYS/URINARY TRACT: No identified significant cystic or solid masses. No visualized stones. No hydronephrosis or hydroureter. Symmetric enhancement. Urinary bladder is unremarkable. GI: No dilated bowel loops. No obvious wall thickening. Normal appendix. No significant diverticular disease. PERITONEUM: No ascites or free air. RETROPERITONEUM: No mass or adenopathy. REPRODUCTIVE: No significant abnormality. VASCULATURE: No abdominal aortic aneurysm. MUSCULOSKELETAL: No significant abnormality. OTHER: No other abnormality. THIS IS AN ELECTRONICALLY VERIFIED FINAL REPORT 08/28/2024 1:27 AM - Electronically signed by Clarence Leavitt M.D. KT: DAVID Report ID: [id number] Reading Location: [id number] Procedure Note Clarence Leavitt MD - 08/28/2024 EXAM DESCRIPTION: CT ABDOMEN PELVIS W/ CONTRAST REASON FOR STUDY: c/o RUQ abdominal pain x 1 day. HX: GERD TECHNIQUE: CT scan of the abdomen and pelvis performed with intravenous and without oral contrast using helical scanning technique with dynamic intravenous contrast injection. Reconstructed coronal and sagittal MPR images reviewed. All images stored on PACS. Automated exposure control was used as a dose optimization technique for this examination. CONTRAST TYPE/DOSE: 100mL of IOPAMIDOL 76 % IV SOLN injected via Intravenous COMPARISON: None FINDINGS: LOWER CHEST: No significant pulmonary abnormalities. No effusion. LIVER: Normal size. No identified cystic or solid masses. GALLBLADDER: The gallbladder is distended, and the gallbladder wall demonstrates mild diffuse thickening. No CT evidence of cholelithiasis. If there is clinical concern for cholecystitis, recommend correlation with gallbladder ultrasound. BILE DUCTS: No intrahepatic or extrahepatic ductal dilatation. SPLEEN: Normal size. No focal lesions. PANCREAS: No identified cystic or solid masses. No significant calcifications. No adjacent inflammation or peripancreatic fluid collections. Pancreatic duct not dilated. ADRENALS: Normal. KIDNEYS/URINARY TRACT: No identified significant cystic or solid masses. No visualized stones. No hydronephrosis or hydroureter. Symmetric enhancement. Urinary bladder is unremarkable. GI: No dilated bowel loops. No obvious wall thickening. Normal appendix. No significant diverticular disease. PERITONEUM: No ascites or free air. RETROPERITONEUM: No mass or adenopathy. REPRODUCTIVE: No significant abnormality. VASCULATURE: No abdominal aortic aneurysm. MUSCULOSKELETAL: No significant abnormality. OTHER: No other abnormality. THIS IS AN ELECTRONICALLY VERIFIED FINAL REPORT 08/28/2024 1:27 AM - Electronically signed by Clarence Leavitt M.D. KT: DAVID Report ID: [id number] Reading Location: [id number] IMPRESSION: The gallbladder is distended, and the gallbladder wall demonstrates mild diffuse thickening. No CT evidence of cholelithiasis. If there is clinical concern for cholecystitis, recommend correlation with gallbladder ultrasound. us Marco Antonio Layton MD IMG CT ORDERABLES Final R esult * XR WRIST 3 OR MORE VIEWS RIGHT (07/26/2024 1:16 PM CDT) Anatomical Region Laterality Modality UPPER EXTREMITY, wrist Right Digital R adiography 07/26/2024 1:59 PM CDT Impressions 07/26/2024 2:01 PM CDT IMPRESSION: No acute bony abnormality in the right wrist. Narrative 07/26/2024 2:01 PM CDT EXAM DESCRIPTION: XR WRIST 3 OR MORE VIEWS RIGHT REASON FOR STUDY: RIGHT WRIST PAIN STATUS POST INJURY TODAY. TECHNIQUE: 3 radiographic view(s) of the right wrist . COMPARISON: None FINDINGS: BONES/JOINTS: There is no acute fracture, malalignment or osseous abnormality. The joint spaces are normal. SOFT TISSUES: Within normal limits. THIS IS AN ELECTRONICALLY VERIFIED FINAL REPORT 07/26/2024 1:59 PM - Electronically signed by Jose Enrique Navas M.D. RB: RB Report ID: [id number] Reading Location: [id number] Procedure Note Jose Enrique Navas MD - 07/26/2024 EXAM DESCRIPTION: XR WRIST 3 OR MORE VIEWS RIGHT REASON FOR STUDY: RIGHT WRIST PAIN STATUS POST INJURY TODAY. TECHNIQUE: 3 radiographic view(s) of the right wrist . COMPARISON: None FINDINGS: BONES/JOINTS: There is no acute fracture, malalignment or osseous abnormality. The joint spaces are normal. SOFT TISSUES: Within normal limits. THIS IS AN ELECTRONICALLY VERIFIED FINAL REPORT 07/26/2024 1:59 PM - Electronically signed by Jose Enrique Navas M.D. RB: RB Report ID: [id number] Reading Location: [id number] IMPRESSION: No acute bony abnormality in the right wrist. Danelle Hare APRN, DOVETAIL MACHINE OPERATOR IMG DIAGNOSTIC ORD ERABLES Final Result from Last 3 Months Insurance [facility] Advance Directives * Full Code (Latest Code Status on File) Date Activated Date Inactivated Comments 09/01/2024 12:26 PM CPR-Full Tania tment: FULL ARREST: Attempt Resuscitation/CPR wit intubation and mechanical ventilation. PRE-ARREST: Use entire range of life support measures to stabilize the patient. Care Teams Tile Setter Apprentice Relationship Specialty Start Date End Date Beata Cuello APRN, DOVETAIL MACHINE OPERATOR [address] [facility] [address] [place] [address] PCP - General Advanced Practice Nurse 05/02/24 Mane Wiley MD #[address] [address] Consulting Physician Colon and Rectal Surgery 08/30/24
--- OUTSIDE RECORDS SUMMARY | 2024-10-12 08:07 | XMS_ITS | Clinical Summary ---
Author Organization [facility] [address] Address [address] [place] [id number] Care Team Providers Care Director Recreation Center Name Role Phone Alesia Cutler MD Unavailable [phone] Beata Cuello NP Primary Care Provider [phone] Allergies Active Allergy Reactions Criticality Noted Date Comments Nickel Rash,Itching Reaction: Rash, Itching, Medications medroxyPROGESTERon e (DEPO-PROVERA) 150 mg/mL injection Inject 1 mL (150 mg total) into the muscle as instructed every 3 (three) months 4 Active famotidine (PEPCID) 20 mg tablet Take 1 tablet (20 mg total) by mouth 2 (two) times a day 90 tablet 3 4 Active citalopram (CeleXA) 20 mg tablet Take 1 tablet (20 mg total) by mouth daily 90 tablet 1 4 Active ondansetron ODT (ZOFRAN-ODT) 4 mg disintegrating tablet Take 1 tablet (4 mg total) by mouth every 8 (eight) hours as needed for nausea or vomiting 15 tablet 1 5 Active topiramate (TOPAMAX) 50 mg tabletIndications: Migraine Prevention Take 1 tablet (50 mg total) by mouth nightly 90 tablet 1 5 Active rizatriptan (MAXALT) 10 mg tabletIndications: Migraine Take 1 tablet (10 mg total) by mouth once as needed for migraine May repeat in 2 hours if unresolved. Do not exceed 30 mg in 24 hours. 15 tablet 5 5 026 Active methylphenidate ER (METADATE ER) 20 mg CR tabletIndications: Attention-Deficit Hyperactivity Disorder Take 1 tablet (20 mg total) by mouth every morning 30 tablet 5 Active Active Problems Problem Noted Date Diagnosed Date Hypoglycemia 05/09/2024 Intractable migraine without aura and without status migrainosus 04/18/2024 Assessment & Plan (05/09/2024 7:59 AM MOUNTER SMOKING PIPE): still getting headache 1-2 times/week. Increase topamax to 50mg. Continue to use rizatriptan. Pt Dc'd the indocin Assessment & Plan (04/18/2024 2:39 PM MOUNTER SMOKING PIPE): Toradol 60 mg IM given in office today Maxalt p.r.n. migraine, with instructions for use given Discussed prevention of migraines. Will start Topamax 25 mg at bedtime. I also gave her indomethacin and Zofran to use p.r.n. for migraines She has follow-up scheduled May 09 and will see how the Topamax is doing with her migraines Attention deficit hyperactiv ity disorder (ADHD), predominantly inattentive type 03/28/2024 Assessment & Plan (05/09/2024 7:59 AM MOUNTER SMOKING PIPE): Concentration is doing good. Continue methylphenidate and citalopram Assessment & Plan (04/18/2024 2:34 PM MOUNTER SMOKING PIPE): Stable. Improved with methylphenidate ER 20 mg once daily. It does not seem that this had an effect on migraines. I will renew it today. She has a follow-up already scheduled for May 09. Assessment & Plan (03/28/2024 5:52 AM MOUNTER SMOKING PIPE): +CAARS scale. Positive symptoms in childhood, undiagnosed. Will start with methylphenidate ER 20mg once daily. Discussed risks/benefits of medication and the fact that this is a controlled substance and should be kept in a safe place and can only be written for 30 day supplies. Will have her return in 1 month for recheck on medication. Pt voiced understanding of plan of care and f/u. Class 1 obesity due to exces s calories with serious comorbidity and body mass index (BMI) of 30.0 to 30.9 in adult 03/28/2024 Assessment & Plan (05/09/2024 7:13 AM MOUNTER SMOKING PIPE): Educated about heart healthy diet and exercise Assessment & Plan (04/18/2024 2:34 PM MOUNTER SMOKING PIPE): BMI Follow-up includes: nutrition counseling. Assessment & Plan (03/28/2024 5:55 AM MOUNTER SMOKING PIPE): - avoid procressed/fried/fast foods; low-fat/high-fiber diet - aim for at least 150 min moderate to intense aerobic activity weekly Annual physical exam 08/12/2023 Assessment & Plan (08/12/2023 8:46 AM CDT): -Recommended: Healthy diet. Avoiding junk food/fast food. -30 minutes of exercise most days of the week. Increase to 45 minutes for weight loss. Immunizations: Up to date increase physical activity, follow low fat diet, call if any problems Follow-up in 6 months. Other acne 08/12/2023 Assessment & Plan (08/12/2023 9:00 AM CDT): Recommended clinda gel topically 2 area of break out nightly Moderate episode of recurrent major depressive d isorder 07/14/2023 Overview (07/14/2023): Hx: fluoxetine - in high school - somewhat helpful. Doses went back and forth from 10-20 Assessment & Plan (05/09/2024 7:56 AM MOUNTER SMOKING PIPE): Stable on current medication. Continue citalopram as ordered. May follow up in 6 months Assessment & Plan (04/18/2024 2:33 PM MOUNTER SMOKING PIPE): Stable on current medication. Continue citalopram as ordered. May follow up in 6 months Assessment & Plan (03/28/2024 5:53 AM MOUNTER SMOKING PIPE): - chronic, symptoms stable on current regimen - continue citalopram 20 mg daily Assessment & Plan (08/12/2023 8:45 AM CDT): Stable on current medication. Continue citalopram as ordered. May follow up in 6 months Assessment & Plan (07/14/2023 8:51 AM CDT): Discussed starting a medication and pt is agreeable. Will start citalopram . Discussed starting dose and titration to full dose, possible SE and time frame for expected results. Call if any suicidal thoughts or questions concerning SE. Do not abruptly stop medication without calling office. Follow up in 3-4 weeks for recheck and continuation of medications. Will write ESR letter. Get screening labs today Resolved Problems Problem Noted Date Diagnosed Date Resolved Date Chemical dermatitis 05/23/2012 07/14/19 24 Keratosis pilaris 12/21/2011 07/14/2023 Encounters Date Type Department Care Team Description 08/28/2024 Orders Only [facility] Primary Care at [address] [phone] Beata Cuello NP Right upper quadrant pain (Primary Dx); Thickening of wall of gallbladder 08/28/2024 Telephone [facility] at [address] [phone] Beata Cuelol NP Medical Question/Miscellane ous; Call Back 08/27/2024 11:00 AM CDT Office Visit [facility] at [address] [phone] Yara Resendez PA Epigastric pain (Primary Dx) 08/23/2024 Patient Self-Triage [facility] HealthCare/ Physicians [address] [place] [id number] Mychart, Generic Provider from Last 3 Months Immunizations Immunization Administration Dates Next Due DTaP 05/28/2004, 1,04/01/2000,02/02,1999 HPV, Quadrivalent 05/07/2014,01/04/2014,11/04/19 14 HPV9 10/20/2017 Hep A, Pediatric 11/03/2013,09/25/2010 Hep B / HiB 12/30/2000,02/03/2000,1999 IPV 05/28/2004, 1,04/01/2000,11/19 Influenza, Live, Intranasal, Quadrivalent 01/04/2014 Influenza, Quadrivalent, Spl it, Intramuscular 01/21/2021 Influenza, Quadrivalent, Spl it, Preservative Free, Intramuscular 03/07/2022,01/03/2021,02/09/2020 Influenza, Trivalent, Preser vative Free, Intramuscular 03/15/2024 Influenza, Unspecified 04/12/2023(Deferr ed: Patient Refused),04/12/2022(Deferred: Patient Refused) MMR 05/28/2004,12/30/2000 Meningococcal B, Recombinant (Trumenba) 05/18/2019,10/20/2017 Meningococcal MCV4P (Menactra) 10/25/2015 Pfizer SARS-CoV-2 Monovalent Vaccination (12+ Yrs) PURPLE 02/28/2021,08/10/2020,07/20/2020 Pfizer Sars-Cov-2 Bivalent V accination (12+ YRS) 03/07/2022 Pneumococcal Conjugate PCV 13 2000 ,04/01/2000,02/03/2000,11/19 Tdap 01/03/2021,11/14/2010 Varicella 09/25/2010,2000 Surgical History Surgery Date Site/Laterality Comments WISDOM TOOTH EXTRACTION 4 Medical History Medical History Date Comments Personal history of other in fectious and parasitic diseases History of viral warts - (Ad ded by TW Conv) Depression Anxiety Family History Medical History Relation Name Comments Diabetes type II Father Hypertension Father Hypothyroidism Mother Migraines Mother prediabetes Mother Relation Name Status Comments Father Alive Mother Alive Social History Tobacco Use Types Packs/Day Years Used Date Smoking Tobacco: Never Smokeless Tobacco: Never Tobacco Cessation:Counseling Given: Not Answered Alcohol Use Standard Drinks/Week Comments Never 0 (1 standard drink = 0.6 oz pur e alcohol) AUDIT-C Answer Date Recorded Frequency of Alcohol Consumption Never 10/24/2018 Average Number of Drinks Not on file 019 Frequency of Binge Drinking Not on file 10/10 PHQ-2 Answer Date Recorded PHQ-2 Total Score (If total score is 3 or more points, staff should administer the PHQ-9) 0 03/15/2024 Personal Safety Answer Date Recorded Getting School Help Needed Not on file 04/13 Comments Unknown Sex and Gender Information Value Date Recorded Sex Assigned at Not on file Legal Sex Female 10:00 AM MOUNTER SMOKING PIPE Gender Identity Not on file Sexual Orientation Not on file Obstetrics History Last Filed Vital Signs Vital Sign Reading Time Taken Comments Blood Pressure 120/82 08/27/2024 11:03 AM CDT Pulse 87 08/27/2024 11:03 AM CDT Temperature 36.7 C (98.1 F) 08/27/2024 11:03 AM CDT Respiratory Rate 18 08/27/2024 11:03 AM CDT Oxygen Saturation 98% 08/27/2024 11:03 AM CDT Inhaled Oxygen Concentration - - Weight 90.5 kg (199 lb 9.6 oz) 08/27/2024 11:03 AM CDT Height 172.7 cm (5' 7.99) 08/27/2024 11:03 AM C DT Body Mass Index 30.36 08/27/2024 11:03 AM CDT Plan of Treatment Health Maintenance Due Date Last Done Comments Cervical Cancer Screening 1999 Hepatitis C Screening 1999 Covid-19 Vaccine (2023-2 5 season) 2023 03/07/2022, 02/28/2021, 08/10/2020, Additional history exists Regular Well Visit/Exam 18-64 08/11/2024 08/12/2023 Depression Screening 03/15/2025 03/15/2024, 08/12/2023, 07/14/2023, Additional history exists DTaP/Tdap/Td Vaccine (8 - Td or Tdap) 01/03/2031 01/03/2021, 11/14/2010, 05/28/2004, Additional history exists Pneumococcal vaccine <65 Completed 001, 04/01/2000, 02/03/2000, Additional history exists Hepatitis B Screening Completed 12/30/2000 , 02/03/2000, 1999 Varicella Vaccines Completed 09/25/2010, 2000 HPV Vaccines Completed 10/20/2017, 04/13, 01/04/2014, Additional history exists Influenza Vaccine Completed 03/15/2024, , 01/21/2021, Additional history [place] [address] [place] [address] [facility] [place] [address] [place] [address] [place] [address] [place] [address] Care Teams Director Recreation Center Relationship Specialty Start Date End Date Beata Cuello NP [address] [facility] [address] [place] [address] PCP - General Family Medicine 09/21/24 Alesia Cutler MD 1/2/24
--- OUTSIDE RECORDS SUMMARY | 2024-10-12 08:07 | XMS_ITS | Referral Summary ---
Author Organization [facility] [address] [address] Care Team Providers Care Product Steward Name Role Phone Alesia Cutler MD Unavailable [phone] Beata Cuello PRECISION LENS CENTERER AND EDGER Primary Care Provider [phone] Encounters Date Type Department Care Team Description 08/28/2024 Orders Only [facility] Primary Care at [address] [phone] Beata Cuello NP Right upper quadrant pain (Primary Dx); Thickening of wall of gallbladder 08/28/2024 Telephone [facility] at [address] [phone] Beata Cuello NP Medical Question/Miscellane ous; Call Back 08/27/2024 11:00 AM CDT Office Visit [facility] at [address] [phone] Yara Resendez PA Epigastric pain (Primary Dx) 08/23/2024 Patient Self-Triage [facility] HealthCare/ Physicians [address] [place] [phone] Mychart, Generic Provider from Last 3 Months Allergies Active Allergy Reactions Criticality Noted Date [...] 04/18/2024 Assessment & Plan (05/09/2024 7:59 AM SASH ASSEMBLER): still getting headache 1-2 times/week. Increase topamax to 50mg. Continue to use rizatriptan. Pt Dc'd the indocin Assessment & Plan (04/18/2024 2:39 PM SASH ASSEMBLER): Toradol 60 mg IM given in office today Maxalt p.r.n. migraine, with instructions for use given Discussed prevention of migraines. Will start Topamax 25 mg at bedtime. I also gave her indomethacin and Zofran to use p.r.n. for migraines She has follow-up scheduled May 09 and will see how the Darren is doing with her migraines Attention deficit hyperactiv ity disorder (ADHD), predominantly inattentive type 03/28/2024 Assessment & Plan (05/09/2024 7:59 AM SASH ASSEMBLER): Concentration is doing good. Continue methylphenidate and citalopram Assessment & Plan (04/18/2024 2:34 PM SASH ASSEMBLER): Stable. Improved with methylphenidate ER 20 mg once daily. It does not seem that this had an effect on migraines. I will renew it today. She has a follow-up already scheduled for May 09. Assessment & Plan (03/28/2024 5:52 AM SASH ASSEMBLER): +CAARS scale. Positive symptoms in childhood, undiagnosed. [...] 03/28/2024 Assessment & Plan (05/09/2024 7:13 AM SASH ASSEMBLER): Educated about heart healthy diet and exercise Assessment & Plan (04/18/2024 2:34 PM SASH ASSEMBLER): BMI Follow-up includes: nutrition counseling. Assessment & Plan (03/28/2024 5:55 AM SASH ASSEMBLER): - avoid procressed/fried/fast foods; low-fat/high-fiber diet - [...] 10-20 Assessment & Plan (05/09/2024 7:56 AM SASH ASSEMBLER): Stable on current medication. Continue citalopram as ordered. May follow up in 6 months Assessment & Plan (04/18/2024 2:33 PM SASH ASSEMBLER): Stable on current medication. Continue citalopram as ordered. May follow up in 6 months Assessment & Plan (03/28/2024 5:53 AM SASH ASSEMBLER): - chronic, symptoms stable on current regimen [...] 05/23/2012 07/14/19 24 Keratosis pilaris 12/21/2011 07/14/2023 Immunizations Immunization Administration Dates Next Due DTaP [...] 13 2000 ,04/01/2000,02/03/2000,11/19 Tdap 01/03/2021,11/14/2010 Varicella 09/25/2010,2000 Social History Tobacco Use Types Packs/Day Years [...] on file Legal Sex Female 10:00 AM SASH ASSEMBLER Gender Identity Not on file Sexual Orientation [...] 08/27/2024 11:03 AM CDT Plan of Treatment Not on [place] [address] [address] [place] [phone] [facility] FED[employer] Care Teams Product Steward Relationship Specialty Start Date End Date Beata Cuello PRECISION LENS CENTERER AND EDGER [address] [place] [address] PCP - General Family Medicine 09/21/24 Alesia Cutler MD 04/13/23
[2024-10-12 08:08] VITALS: BP 132/72; PULSE 81; RESP 20; TEMP 36.7; O2SAT 100
--- NOTE | 2024-10-12 08:27 | ED_ITS ---
HPI - Extremity Injury (Lower) General Chief Complaint: Extremity Injury, Lower Stated Complaint: right foot pain Time Seen by Provider: 10/12/24 08:22 Source: patient Mode of arrival: ambulatory Limitations: no limitations History of Present Illness HPI Narrative: 24 y/o female presented for c/o right foot pain. onset 17 days. States symptoms started after walking a lot on the first park day at [employer], and pt continued to walk the [place] for the subsequent days. pain is reported to the top of the right foot radiating to the great toe. Denies bruising, swelling, deformity, or known injury. Rates pain 5/10 at rest, 7/10 with walking. Taking Tylenol and ibuprofen, rest and ice without much improvement. Related Data Home Medications ?Medication ?Instructions ?Recorded ?Confirmed ?Last Taken ?Type medroxyprogesterone 150 mg/mL mg IM 12/21/23 12/21/23 Unknown History intramuscular syringe Allergies Allergy/AdvReac Type Severity Reaction Status Date / Time nickel Allergy Rash Verified 10/12/24 08:24 Review of Systems 2 Review of Systems: CONSTITUTIONAL: Denies body aches, fever, chills EYES: Denies visual changes ENT: Denies rhinorrhea, congestion CARDIOVASCULAR: Denies chest pain, palpitations, or edema. RESPIRATORY: Denies cough or dyspnea. SKIN: Denies rash, itching, or wounds. MUSCULOSKELETAL: reports right foot pain NEUROLOGIC: Denies headache, numbness, tingling, or weakness. All systems reviewed & are unremarkable except as noted in HPI and below PMFSH Past Medical History Medical History (Updated 10/12/24 @ 08:42 by Grazyna Kingston APRN) GERD (gastroesophageal reflux disease) Social History Social History (Updated 12/22/23 @ 17:01 by Rosemarie Haile NP) Smoking status: Never smoker Alcohol intake: current Alcohol use details: social Substance use type: does not use Living arrangements: with family Gender identity (if verbalized by the patient): Female Comments At time of signature, I have reviewed and agree with nursing past medical, surgical, social and family history unless otherwise noted. Please see nursing chart for further information. There is no relevant family history pertinent to the presenting complaint Exam 2 Narrative: GENERAL: Well-appearing, well-nourished, and in no acute distress. CHEST: Speaks in full sentences. No respiratory distress. HEART: Regular rate and rhythm. Normal and equal peripheral pulses. EXTREMITIES: Right dorsal jet dyeing machine tender with palpation over 1st and 2nd metatarsals, extending to 1st digit. No swelling,erythema,bruising. Slightly decreased range of motion to great toe due to reported pain with movement. Foot has normal strength and sensation. No open wounds, or obvious deformity; pulse palpable and equal bilaterally, skin warm, dry, pink. Capillary refill less than 3 seconds. SKIN: Warm, dry NEURO: Alert and oriented x3. PSYCH: Normal mood and affect Extrem: Ankle/foot/toe images: 1. location of pain Course Course Emergency Course: Patient is aware of diagnosis, understands and agrees to treatment plan. Anticipatory guidance given. Patient agrees to follow-up as directed and is aware of reasons to seek care at the emergency department. Portions of this record may have been created with voice recognition software Level of Care: Express Care Visit Vital Signs Vital signs: Vital Signs Temperature 98.1 F 10/12/24 08:08 Pulse Rate 81 10/12/24 08:08 Respiratory Rate 20 10/12/24 08:08 Blood Pressure 132/72 10/12/24 08:08 Pulse Oximetry 100 10/12/24 08:08 Oxygen Delivery Room Air 10/12/24 08:08 Temperature 98.1 F 10/12/24 08:08 Pulse Rate 81 10/12/24 08:08 Respiratory Rate 20 10/12/24 08:08 Blood Pressure 132/72 10/12/24 08:08 Pulse Oximetry 100 10/12/24 08:08 Oxygen Delivery Room Air 10/12/24 08:08 Reviewed MDM - Extremity Injury (Lower) MDM Narrative Medical decision making narrative: Discussed physical exam findings and xray. JEFF and post op shoe applied. . Advised supportive measures and signs/symptoms to go to the ER. Pt is appropriate for outpt treatment and f/u. Differential Diagnosis Differential diagnosis: Likely other (Plantar fasciitis, heel spur, foot strain/sprain, metatarsal fracture, metatarsalgia, saunders's neuroma) Imaging Data Radiologist's impression: Patient: Liss Cartagena : 2000 MR#: [id number] Age: 24 Acct:[id number] Loc: [facility] ADM Date: 10/12/24Attending Dr: Right foot Technique: AP, oblique, and lateral views were obtained. Clinical History: Pain Findings: No acute fracture or dislocation is seen. Osseous alignment is anatomic. Joint spaces are preserved without erosive or degenerative change. Soft tissues are unremarkable. Impression: Unremarkable right foot radiographs. Discharge Plan Discharge Clinical Impression: Strain of foot, right Patient Disposition: Home Condition: Stable Instructions: Foot Sprain (ED) Additional Instructions: Rest and elevate the right foot; bear weight as tolerated Apply ice 15-20 minute intervals several times a day Keep it wrapped with JEFF and wear the post op shoe Motrin 800mg every 8 hours, alternate with Tylenol 1000mg every 8 hours as needed Follow up with your primary care provider as needed go to the ER for worsening symptoms or concerns Patient Language: [place] Prescriptions: New ibuprofen 800 mg tablet 800 mg PO TID PRN (Reason: pain) Qty: 15 0RF No Action medroxyprogesterone 150 mg/mL syringe IM Follow-up/Referrals: Cuate,MINO Farley [Primary Care Provider] - Time of Disposition: 08:42
== END 2024-10-12 08:45 | disposition home or self-care (01) ==
PROVIDERS: Emergency Provider Nurse Practitioner Family; PCP Nurse Practitioner Family
DX: S96.911A Strain of unspecified muscle and tendon at ankle and foot level, right foot, initial encounter (principal); X50.3XXA Overexertion from repetitive movements, initial encounter; Y93.01 Activity, walking, marching and hiking; K21.9 Gastro-esophageal reflux disease without esophagitis
CPT/HCPCS: 73630; 99213; G0463